=== PATIENT | female | born 1960 | race Caucasian/White ===

== ENCOUNTER 2016-12-17 13:04 | Emergency (ER) | payer OTHER ==
[~2016-12-17] VITALS: Ht 167.6 cm; Wt 50.0 kg
[2016-12-17 13:04] VITALS: BP 125/74; PULSE 55; RESP 17; O2SAT 100
[2016-12-17 13:42] LABS: BASOPHILS % (AUTO) 0.6 % (0-3); EOSINOPHILS % (AUTO) 2.9 % (0-5); MONOCYTES % (AUTO) 5.6 % (4-12); Mean Corpuscular Volume 91.1 fL (81-100); NEUTROPHILS % (AUTO) 70.3 % (40-74); Platelet Count 273 bil/L (150-400)
[2016-12-17 13:54] LABS: TROPONIN T < 0.010 ug/L (0.0-0.011)
--- NOTE | 2016-12-17 14:00 | DRSVH ---
PROCEDURE: X-RAY CHEST ONE VIEW, PORTABLE ([id number]) INDICATIONS: chest pain TECHNIQUE: One view of the chest was acquired. COMPARISON: None. FINDINGS: Surgical changes and devices: None. Lungs and pleura: No pleural effusions or pneumothorax. Lungs are clear. Bilateral nipple shadows are noted. Mediastinum: Mediastinal contours appear normal. Heart size is normal. Bones and chest wall: No suspicious bony lesions. Overlying soft tissues appear unremarkable. IMPRESSION: No acute cardiopulmonary findings. Dictated by: Reshma Dong M.D. on 12/17/2016 at 13:58 Approved by: Reshma Dong M.D. on 12/17/2016 at 13:58
[2016-12-17 14:08] LABS: Magnesium 2.1 mg/dL (1.6-2.6)
--- NOTE | 2016-12-17 14:22 | ED.REPORT ---
HPI-Chest Pain 40 and Over Date of Service Dec 17, 2016 ED Provider: Rishi Salvador MD Pt is a 56 year old female with a hx of neck problems presenting to the ED via EMS complaining of gradual dizziness and tingling in bilateral arms onset this morning over the course of an hour. Associated symptoms include neck pain, chest "twinges" lasting 2 seconds x4 episodes today, nausea, vomiting clear liquid/yellowish bile x4 today, and loose stools onset around 1000 today. Denies swelling in the legs. Pt reports that she's been tired and run down lately, and hasn't been "doing her walks or eating her greens" since before it got really cold out. She reports that she has had similar symptoms in the past and had negative cardiac workups. She reports that last time she had these symptoms, it was at the end of last winter, which she believes could be related to her borderline anemia. The dizziness i exacerbated by movement, making ambulation difficult. She describes the dizziness as ceiling moving, and reports that the nausea was caused by the dizziness. Pt is currently pain free, but the dizziness and nausea are still mildly present. Nursing Notes Stated Complaint: NAUSEA/VOMITING Chief Complaint: Chest Pain Nursing Notes Reviewed: Yes ([employer], [email or web address] not reconciled) Allergies: Coded Allergies: Penicillins (Verified Allergy, Intermediate, 12/17/16) Sulfa (Sulfonamide Antibiotics) (Verified Allergy, Intermediate, 12/17/16) Scheduled PRN Meclizine (Bonine) 25 Mg Tab.chew 25 MG PO TID PRN PRN vertigo General Time Seen by MD: 14:06 Chief Complaint Other (Dizziness) Hx Obtained From: Patient Arrived By: Walk-in Sudden in Onset?: No Onset Occurred: 1 - 4 hours ago Symptom Duration: Since onset Severity: Current: No pain currently Severity: Maximum: No pain Recent Healthcare: No recent doctor visit, No recent hospitalization Similar Sx Previous: No Past Medical History Past Medical History denies Past Surgical History Reports: Hysterectomy Family History Father had a heart attack at 62, mother had mitral valve issues following rheumatic fever Smoking History Former Smoker Ambulatory Status Independent Review of Systems Cardiovascular: Reports: Chest pain GI: Reports: Diarrhea, Nausea, Vomiting Musculoskeletal: Reports: Neck pain, Denies: Extremity swelling Neurologic: Reports: Dizziness, Numbness, Spinning sensation Complete sys rev & neg: except as marked. Physical Exam Initial Vital Signs Vital Signs (First) Date Time Temp Pulse Resp B/P Pulse Ox O2 Delivery O2 Flow Rate FiO2 12/17/16 13:04 36.5 55 17 125/74 100 Room Air Initial VS: Reviewed, Vital signs normal ENT: Mucous membranes moist, Conjunctiva normal, No scleral icterus Extremities: Vascular intact, Neuro intact, No swelling, No tenderness Skin: Warm, Dry, No cyanosis Neurologic: Alert, Oriented, Nonfocal Psychiatric: Mood/affect normal, Behavior normal, Normal thought content General/Constitutional: Awake, Alert, No acute distress, Well appearing Respiratory / Chest: Breath sounds NL, Breath sounds = bilat, No respiratory distress, No rales, No rhonchi, No wheezing, No stridor, No chest tenderness Cardiovascular: Heart rate NL, Regular rhythm, Heart sounds NL, No murmurs, Peripheral circulation NL, Pulses = bilaterally, No gross BP differential Abdomen: Soft, Non-tender, McBurney's non-tender, No guarding, No rebound, BS normoactive, No distention, No hernia, No palpable mass Head / Eyes: Atraumatic, Normocephalic Trace bilateral nystagmus which may be baseline for her. Interpretation & Diagnostics Lab Results Interpretation Result Diagram: 12/17/16 1320 12/17/16 1320 Test 12/17/16 13:20 White Blood Count 10.8th/mm3 (3.8-10.1) Red Blood Count 4.60mil/mm3 (3.90-5.20) Hemoglobin 13.8g/dL (12.0-15.6) Hematocrit 41.9% (35.0-46.0) Mean Corpuscular Volume 91.1fL (81-100) Mean Corpuscular Hemoglobin 30.0pg (27.0-35.0) Mean Corpuscular Hemoglobin Concent 32.9% (32.0-37.0) Red Cell Distribution Width 12.5% (12.3-15.4) Platelet Count 273bil/L (150-400) Neutrophils (%) (Auto) 70.3% (40-74) Lymphocytes (%) (Auto) 20.4% (14-46) Monocytes (%) (Auto) 5.6% (4-12) Eosinophils (%) (Auto) 2.9% (0-5) Basophils (%) (Auto) 0.6% (0-3) Sodium Level 140mEq/L (134-144) Potassium Level 4.0mEq/L (3.5-5.2) Chloride Level 100mEq/L (97-108) Carbon Dioxide Level 26mmol/L (18-29) Blood Urea Nitrogen 13mg/dL (6-24) Creatinine 0.59mg/dL (0.57-1.00) Estimat Glomerular Filtration Rate 150mL/min (>59) Glucose Level 124mg/dL (60-99) Calcium Level 9.3mg/dL (8.5-10.1) Magnesium Level 2.1mg/dL (1.6-2.6) Total Bilirubin 0.5mg/dL (0.0-1.2) Aspartate Amino Transf (AST/SGOT) 21U/L (0-50) Alanine Aminotransferase (ALT/SGPT) 18U/L (0-32) Alkaline Phosphatase 68U/L (25-150) Troponin T < 0.010ug/L (0.0-0.011) Total Protein 7.3g/dL (6.4-8.4) Albumin 4.6g/dL (3.4-5.0) Lab Results Interpretation: CBC normal CMP normal Troponin negative ECG Interpretation ECG Interpretation: No acute ischemia or abnormalities. Time: 13:31 Interpreted by: ED physician Normal ECG Interpretation: Normal rate (55), Normal sinus rhythm X-Ray Chest Interpretation Chest Xray Interpretation: IMPRESSION: No acute cardiopulmonary findings. Dictated by: Reshma Dong M.D. on 12/17/2016 at 13:58 View: Portable, 1 view Interpretation / Wet Read by: Interpret - Radiologist Re-Eval/Medical Decision Med Decision/Clinical Course Is 56-year-old female brought with with listhed as a chief complaint of chest pain, however the complaint that I get is an episode of dizziness, with nausea and a sense of spinning. He had a couple seconds of a sharp pain in the chest, but is only a few seconds. She also had some brief tingling in the arms again for a few seconds, but it comes that to her neck-and the main issue was that she felt dizzy with spinning, nausea, felt that the world was moving on her, felt sweaty and had to lay down. When I question her, she admits to having episode of vertigo couple years ago and says that it is somewhat similar. She improved. This nausea medicine en route and is now feels much better. On exam she appears well. She has no focal deficits. She has trace nystagmus, which can be normal. Normal vitals. She reports that she was told the prehospital EKG demonstrated right bundle melissa block that is news to her-however I obtained a prehospital EKG, reviewed it, the computer raised the concern for possible early right bundle, but her EKG does not demonstrate a right bundle. Her EKG in the department is normal. Her blood work is normal. All in all, her symptoms are extremely atypical and unlikely to represent a cardiac etiology. Few seconds of discomfort, with more pronounced symptoms suggesting possibility of vertigo. I have explained the exact etiology symptoms unclear, before she describes as more vertiginous component then cardiac component. Her laboratories are reassuring. I recommended rest, a trial course of when necessary meclizine, but routine precautions reviewed. Patient is discharged in much improved condition. Source of Hx: Old records Time of Eval: 15:04 Patient Status: Condition improved Re-Evaluation/Progress Note: Discussed plan for discharge. Pt understands and agrees. Differential Diagnosis: Negative: Acute coronary syndrome, Acute myocardial infarct, Dysrhythmia, Esophageal rupture, Gun shot wound chest, Peptic ulcer disease, Pneumomediastinum, Pneumothorax, Pulmonary edema, Pulmonary embolism, Rib fracture, Stab wound chest Counseled Regarding: Diagnosis, Lab results, Need for follow-up, When/why to return to ED Discharge & Departure Primary Impression: Vertigo Disposition: Home Discharge Condition All VS Reviewed: Yes Condition: Improved Additional Instructions: 1. Your tests in the emergency department are normal. 2. Your EKG and blood work were normal. There were no markers of a heart attack, and her EKG was normal. You are not anemic. 3. I am suspicious that your dizziness and nausea that you describe is from vertigo. 4. This should improve with time. Take it easy. No driving until symptoms resolve. 5. Take meclizine 25 mg up to 3 times a day as needed to reduce symptoms. 6. Return if new, worsening, or uncontrolled symptoms occur Referrals: [facility] Scribe Attestation Portions of this note were transcribed by Park Colunga. I, Dr. Salvador personally performed the history, physical exam and medical decision-making; I reviewed and confirmed the accuracy of the information in the transcribed note. Signed by: Vale Knutson, 17/12/2016 and [id number]. copies to: [facility] Rishi Salvador MD Dec 17, 2016 14:22 P[place] Dec 17, 2016 14:40
[2016-12-17] MEDS ORDERED: MECL-114 PO (14:58)
[2016-12-17 15:26] VITALS: BP 108/73; PULSE 57; RESP 15; O2SAT 99
== END 2016-12-17 15:25 | disposition home or self-care (01) ==
LOC: SED 13:04
DX: R42 Dizziness and giddiness (principal); M54.2 Cervicalgia; R20.2 Paresthesia of skin; R11.2 Nausea with vomiting, unspecified; R19.7 Diarrhea, unspecified; R07.9 Chest pain, unspecified; Z87.891 Personal history of nicotine dependence; Z88.0 Allergy status to penicillin; Z88.2 Allergy status to sulfonamides

== ENCOUNTER 2017-06-14 14:14 | Observation (INO) | payer OTHER ==
[~2017-06-14] VITALS: Ht 167.6 cm; Wt 48.9 kg
[2017-06-14 14:14] VITALS: BP 117/67; PULSE 62; RESP 15; O2SAT 100
[~2017-06-14 14:14] MED LIST: MECL-114 PO
[2017-06-14 14:24] LABS: BASOPHILS % (AUTO) 0.9 % (0-3); EOSINOPHILS % (AUTO) 3.9 % (0-5); MONOCYTES % (AUTO) 7.9 % (4-12); Mean Corpuscular Hemoglobin 30.2 pg (27.0-35.0); Mean Corpuscular Volume 87.9 fL (81-100); NEUTROPHILS % (AUTO) 55.9 % (40-74); Platelet Count 288 bil/L (150-400)
[2017-06-14] MEDS ORDERED: PROP1VIA ORAL (14:37)
[2017-06-14 14:58] LABS: TROPONIN T < 0.010 ug/L (0.0-0.011)
[2017-06-14 14:59] LABS: Magnesium 2.1 mg/dL (1.6-2.6)
--- NOTE | 2017-06-14 15:19 | DRSVH ---
PROCEDURE: X-RAY CHEST ONE VIEW, PORTABLE ([id number]) INDICATIONS: Chest pain. TECHNIQUE: One view of the chest was acquired. COMPARISON: [facility], CR, CHEST 1VW (PORTABLE), 04/28/2013, 17:25. [facility], CR, CHEST 1VW (PORTABLE), 09/11/2010, 4:37. [facility], CR, XR CHEST 1VW (PORTABL E), 12/17/2016, 13:20. FINDINGS: Surgical changes and devices: None. Lungs and pleura: Hyperinflation suggesting COPD. No pleural effusions or pneumothorax. Lungs are c lear. Mediastinum: Mediastinal contours appear normal. Heart size is normal. Bones and chest wall: No suspicious bony lesions. Overlying soft tissues appear unremarkable. IMPRESSION: No acute cardiopulmonary disease. ? COPD. Dictated by: Alan Carrasquillo M.D. on 06/14/2017 at 15:15 Approved by: Alan Carrasquillo M.D. on 06/14/2017 at 15:17
--- NOTE | 2017-06-14 15:23 | ED.REPORT ---
HPI-General Illness Date of Service Jun 14, 2017 ED Provider: Med Ambrose MD The patient is a 57 year old female w/ a hx of anxiety who presents to the ED via EMS complaining of intermittent, 6/10, mid-chest pain and pressure for the past week and a half. Sometimes the pain radiates down her left arm and into her neck. The pain increase with exertion and reduces with rest. Nitroglycerin helps relieve her symptoms. She had an episode of chest pain while she was gardening that last for several minutes and accompanied by shortness of breath. She denies nausea, vomiting, diarrhea, urinary symptoms, dysuria, back pain, bloody/tarry stool, back pain, incontinence, urinary urgency, urinary frequency , hematuria. The pt sees Dr. Clements in [place]. Nursing Notes Stated Complaint: CHEST PAIN Chief Complaint: Chest Pain Nursing Notes Reviewed: Yes Allergies: Coded Allergies: Penicillins (Verified Allergy, Intermediate, 06/14/17) Sulfa (Sulfonamide Antibiotics) (Verified Allergy, Intermediate, 06/14/17) Scheduled PRN Propranolol (Propranolol) 1 Mg/1 Ml Vial 10 MG ORAL DIRECTED PRN PRN TREMORS General Time Seen by MD: 15:00 Chief Complaint Chest pain Hx Obtained From: Patient Arrived By: Ambulance Sudden in Onset?: Yes Onset Occurred: 1 week ago Symptom Duration: Since onset Location: : Chest Quality: Painful, Pressure Radiation: : Arm left Severity: Maximum: Pain level 6 out of 10 Pertinent Negative: Pt denies other symptoms Recent Healthcare: Recent doctor visit Similar Sx Previous: Yes Past Medical History Past Medical History anxiety Past Surgical History Reports: Hysterectomy Family History Father had a heart attack at 62, mother had mitral valve issues following rheumatic fever Smoking History Former Smoker Ambulatory Status Independent Review of Systems Full Review of Systems Respiratory: Reports: Shortness of breath Cardiovascular: Reports: Chest pain GI: Denies: Bloody/tarry stool, Diarrhea, Nausea, Vomiting Female: Denies: Dysuria, Hematuria, Incontinence, Urinary frequency, Urinary urgency Musculoskeletal: Denies: Back pain Complete sys rev & neg: except as marked. Physical Exam Nursing note and vitals reviewed. Constitutional: Well-developed, well-nourished. Not diaphoretic. Head: Normocephalic and atraumatic. Mouth/Throat: Oropharynx is clear and moist. No oropharyngeal exudate. Eyes: EOM are normal. Pupils are equal, round, and reactive to light. Neck: Supple, no tracheal deviation. Cardiovascular: Normal rate, regular rhythm. Equal and intact distal pulses throughout. Pulmonary/Chest: Effort normal and breath sounds normal. No respiratory distress. Abdominal: Soft. No distension. There is no tenderness, rebound, or guarding. Bowel sounds present Musculoskeletal: Range of motion grossly intact, moving all extremities. No edema or tenderness appreciated. Neurological: AOx3. Grossly nonfocal exam. Strength and sensation intact and equal to bilateral upper and lower extremities. Skin: Warm and dry, no rashes or pallor appreciated. Psychiatric: Appropriate mood and affect. Behavior appears normal. Vital Signs Vital Signs Date Time Temp Pulse Resp B/P Pulse Ox O2 Delivery O2 Flow Rate FiO2 06/14/17 18:26 59 16 128/70 99 Room Air 06/14/17 16:02 65 18 124/76 99 Room Air 06/14/17 14:14 37.0 62 15 117/67 100 Room Air Initial VS: Reviewed Interpretation & Diagnostics Lab Results Interpretation Result Diagram: 06/14/17 1421 06/14/17 1421 Test 06/14/17 14:21 White Blood Count 7.5th/mm3 (3.8-10.1) Red Blood Count 4.31mil/mm3 (3.90-5.20) Hemoglobin 13.0g/dL (12.0-15.6) Hematocrit 37.9% (35.0-46.0) Mean Corpuscular Volume 87.9fL (81-100) Mean Corpuscular Hemoglobin 30.2pg (27.0-35.0) Mean Corpuscular Hemoglobin Concent 34.3% (32.0-37.0) Red Cell Distribution Width 12.7% (12.3-15.4) Platelet Count 288bil/L (150-400) Neutrophils (%) (Auto) 55.9% (40-74) Lymphocytes (%) (Auto) 31.3% (14-46) Monocytes (%) (Auto) 7.9% (4-12) Eosinophils (%) (Auto) 3.9% (0-5) Basophils (%) (Auto) 0.9% (0-3) Sodium Level 139mEq/L (134-144) Potassium Level 3.9mEq/L (3.5-5.2) Chloride Level 101mEq/L (97-108) Carbon Dioxide Level 21mmol/L (18-29) Blood Urea Nitrogen 15mg/dL (6-24) Creatinine 0.54mg/dL (0.57-1.00) Estimat Glomerular Filtration Rate 166mL/min (>59) Glucose Level 124mg/dL (60-99) Calcium Level 9.6mg/dL (8.5-10.1) Magnesium Level 2.1mg/dL (1.6-2.6) Total Bilirubin 0.3mg/dL (0.0-1.2) Aspartate Amino Transf (AST/SGOT) 16U/L (0-50) Alanine Aminotransferase (ALT/SGPT) 12U/L (0-32) Alkaline Phosphatase 79U/L (25-150) Total Protein 7.0g/dL (6.4-8.4) Albumin 4.2g/dL (3.4-5.0) Thyroid Stimulating Hormone (TSH) 1.450uIU/mL (0.450-4.500) ECG Interpretation Interpreted by: ED physician Normal ECG Interpretation: Normal sinus rhythm X-Ray Chest Interpretation Chest Xray Interpretation: IMPRESSION: No acute cardiopulmonary disease. ? COPD. Dictated by: Alan Carrasquillo M.D. on 06/14/2017 at 15:15 Approved by: Alan Carrasquillo M.D. on 06/14/2017 at 15:17 View: Portable Interpretation / Wet Read by: Interpret - Radiologist Re-Eval/Medical Decision Med Decision/Clinical Course In summary, in summary, 57-year-old female presenting to the ED for evaluation chest pain. Differential includes ACS, PE, PTX, aortic dissection, myocarditis/ pericarditis, abdominal etiology such as cholecystitis, MSK pain. Pain has been intermittent since onset; troponin negative. HEART score of 4. EKG demonstrates sinus rhythm without acute ischemic changes. Low risk by well's criteria; highly doubt PE. No evidence of pneumothorax on chest x-ray or exam. Pain not described as tearing through to the back, CXR w/ no evidence of widened mediastinum, normal neuro exam, and equal pulses to bilateral upper and lower extremities; aortic dissection seems very unlikely. Neither clinical presentation, exam, or EKG seem c/w pericarditis or myocarditis. No abdominal pain or tenderness. Rest of labs reviewed, unremarkable. CXR w/ no focal consolidations appreciated. Patient would likely benefit from a stress test for risk stratification - given her high risk, plan admission for further management and evaluation. Patient agreeable to plan, no further questions. Time of Eval: 17:40 Re-Evaluation/Progress Note: Plan for admission and stress test. Pt understands and agrees with plan. All questions addressed. Consultation #1: Call Returned at: 18:07 Community Development Manager: Agrees with eval, Agrees with plan Note: Case discussed with Dr. Zia Clements Cardiology office in [place]. Consultation #2: Referral / Consult Name: Raad Monk MD Consulted With: Hospitalist Call Returned at: 18:26 Community Development Manager: Agrees with eval, Agrees with plan, Accepts admit Note: Case discussed. Dr. Monk accepts admit. Counseled Regarding: Diagnosis, Lab results, Need for admission Discharge & Departure Primary Impression: Unstable angina Disposition: ADMITTED TO HOSPITAL Discharge Condition All VS Reviewed: Yes Condition: Stable Referrals: NOPCP (PCP) Zia Clements MD Attestation Portion of this note were transcribed by Kerry Sargent. I, Dr. Ambrose, personally performed the history, physical exam, and medical decision-making: I reviewed and confirmed the accuracy for the information in the transcribed note. Signed by: joselito Philip, 06/14/17 2100 copies to: Zia Clements MD, William B MD Jun 14, 2017 15:23 Kerry Sargent Jun 14, 2017 15:26 Kerry Sargent Jun 14, 2017 15:26
[2017-06-14 16:02] VITALS: BP 124/76; PULSE 65; RESP 18; O2SAT 99
[2017-06-14 18:26] VITALS: BP 128/70; PULSE 59; RESP 16; O2SAT 99
[2017-06-14] MEDS ORDERED: Senna-Docusate 8.6-50 mg Tablet PO PRN (18:45)
[2017-06-14] MEDS ORDERED: Alum-Mag Hydrox-Simeth 30 mL Suspension PO PRN (18:45)
[2017-06-14] MEDS ORDERED: 0.9% Sodium Chloride 1,000 ML IV SCH (18:45)
[2017-06-14] MEDS ORDERED: Ondansetron 2 mg/mL 2 mL Inj IVPUSH PRN (18:45)
[2017-06-14] MEDS ORDERED: Polyethylene Glycol (PEG) 17 Gm Powder PO PRN (18:45)
[2017-06-14 19:14] LABS: Creatine Kinase 83 U/L (21-215)
[2017-06-14 20:20] VITALS: BP 133/58; PULSE 63; RESP 18; O2SAT 98
--- NOTE | 2017-06-14 20:25 | PCM.HPMED ---
Subjective Date of Service Jun 14, 2017 Primary Provider: Admitting Physician: Rodolfo Richards MD Primary Care Physician: Rajendra España MD Attending Physician: Rodolfo Richards MD Chief Complaint: Chest pain History of Present Illness: Flori Fuller is a 57-year-old woman with past medical history of anxiety who presents to the [facility] emergency department today via EMS due to complaints of intermittent, 6 out of 10, mid chest pain and pressure for the past week. The patient states that the pain intermittently radiates down her left arm and into her neck. Pain is worsened with exertion and is mitigated by rest. This is a new feature of the pain for her. The patient has had chest pain before in the past and has had it worked up with cardiac stress test which were negative. The main difference between prior episodes and this one is usually exertion and exercise actually relieved the pain but this time it is exacerbated. Patient was prescribed nitroglycerin at her request by her wood fuel pelletizer and has never needed take it before. She has however, taken at the last couple of days and noticed a relief in her symptoms after taking after glycerin.. She had one prior similar episode of chest pain while she was gardening which lasted for 7 several minutes but resolved upon rest. She denies any nausea, vomiting, urinary symptoms, back pain, fever, chills, palpitations, diaphoresis, lower extremity edema, nocturnal paroxysmal dyspnea, orthopnea. The ED physician has kindly contacted Dr. Clements in [place] who is the patient's wood fuel pelletizer. In the emergency department her vital signs were stable. Review of Systems: A comprehensive review of systems was conducted with the patient and found to be negative except as above in the History of Present Illness. Allergies Coded Allergies: Penicillins (Verified Allergy, Intermediate, 06/14/17) Sulfa (Sulfonamide Antibiotics) (Verified Allergy, Intermediate, 06/14/17) Home Medications Flori Fuller [phone] 1960 02/07/2017 11:05 AM 11/29 Medication Name Directions Inderal XL take 1 capsule by oral route every day at bedtime PMH Anxiety Surgical History Hysterectomy Family History Father had a heart attack at 62, mother had mitral valve issues following rheumatic fever Social History Hx Alcohol Use: Yes (RARE) Hx Substance Use: No Smoking Status: Former Smoker Exam Vital Signs Vital Sign - Last Date Time Temp Pulse Resp B/P Pulse Ox O2 Delivery O2 Flow Rate FiO2 06/14/17 18:26 59 16 128/70 99 Room Air 06/14/17 14:14 37.0 Exam General: No acute distress, thin, well-developed, well-nourished, appropriately interactive HEENT: Normocephalic, atraumatic. External ears without defect. Pupils equal, round, and reactive to light and accommodation. Anicteric sclerae, moist conjunctivae, and no lid lag. Oropharynx free of erythema and cobble stoning with moist mucosa. Neck: Supple with full range of motion. No jugular venous distension. No bruits. No lymphadenopathy or thyromegaly. Cardiovascular: Regular rate and rhythm with no murmurs, rubs, or gallops appreciated. Palpable thrill. Pulmonary: Clear to auscultation bilaterally with no crackles, wheezes, or rhonchi. Normal respiratory effort with no use of accessory muscles. Abdomen: Bowel tones present. Soft, nontender, nondistended. No hepatosplenomegaly or masses appreciated. Extremities: No clubbing, cyanosis, edema, or lymphadenopathy appreciated. Skin: Normal temperature, turgor, and texture; no rash, ulcers, or subcutaneous nodules appreciated. Neurological: Cranial nerves grossly intact. Normal muscle strength, tone, and bulk. Reflexes, coordination, and sensory function within normal limits. No known gait impairment. Psychiatric: Appears anxious but is pleasant and cooperative.. Alert and oriented to person, place, and time. Lab and Diagnostics Result Diagram: 06/14/17 1421 06/14/17 1421 X-Rays, CTs and MRIs X-RAY CHEST ONE VIEW, PORTABLE IMPRESSION: No acute cardiopulmonary disease. Dictated by: Alan Carrasquillo M.D. on 06/14/2017 at 15:15 12-lead ECG Normal sinus rhythm, normal axis, no ST changes Assessment & Plan Flori Fuller is a 57-year-old woman with past medical history of anxiety who presents to the [facility] emergency department today via EMS due to complaints of intermittent, 6 out of 10, mid chest pain and pressure for the past week. Unstable angina, present on admission, active -Patient meets criteria for typical angina with Laura Inés criteria with an intermediate pre-test probability for positive stress test -Troponin negative, EKG unremarkable. -Aspirin 81 mg -Fasting lipid panel tomorrow, A1c -Telemetry monitoring -Exercise stress test -Nothing by mouth after midnight -No indication for heparinization at this time. Anxiety -We will hold patient's propranolol given stress test tomorrow CODE STATUS: Full code Patient is admitted under observation status with expected length of stay less than 2 midnights due to severity of presenting symptoms, risk of adverse event, and complexity of treatment plan. VTE Prophylaxis: Sub-Q Heparin (Unfractionated) Resuscitation Status: CPR: Attempt Resuscitation Attending Statement The patient was seen and examined together with Dr. Collins on 06/14 and I agree with the history, exam and plan as outlined in the note above. Gloria Collins DO Jun 14, 2017 18:52 Rodolfo Richards MD Jun 14, 2017 23:55
[2017-06-14 21:00] VITALS: BP 118/66; PULSE 63; RESP 12; O2SAT 95
[2017-06-14] MEDS ORDERED: LORazepam 1 mg Tablet PO PRN (21:25)
--- NOTE | 2017-06-15 | NUR ---
Admit note/Chest pain Pt arrived to [facility] at 1999. Pt stating came in to ER due to chest pain. Placed pt on tele. During admit questions pt stating chest pain increasing to 3-4/10, described as chest pressure and pain. Placed pt on 2 L O2, VSS, stat EKG ordered, paged. Offered pt ativan and nitro but pt declined due to chest pain being resolved. Med rec completed. Pt up ind in room, steady on feet. Call light within reach, frequent rounding.
[2017-06-15] MEDS: Heparin 5,000 Unit/mL Inj SUBQ SCH ×2 (00:30→07:51)
[2017-06-15] MEDS: Sodium Chloride LOK Flush 10 mL Syringe IVFLUSH SCH ×2 (00:45→07:53)
[2017-06-15 00:48] VITALS: BP 109/73; PULSE 60; RESP 12; O2SAT 98
[2017-06-15 01:54] LABS: Creatine Kinase 74 U/L (21-215)
[2017-06-15 05:50] VITALS: PULSE 56
[2017-06-15 06:03] VITALS: BP 104/54; PULSE 57; RESP 15; O2SAT 97
[2017-06-15 06:46] LABS: BASOPHILS % (AUTO) 1.3 % (0-3); MONOCYTES % (AUTO) 8.8 % (4-12); Mean Corpuscular Hemoglobin 30.2 pg (27.0-35.0); Mean Corpuscular Volume 89.4 fL (81-100); NEUTROPHILS % (AUTO) 46.3 % (40-74); Platelet Count 245 bil/L (150-400)
[2017-06-15 11:42] VITALS: PULSE 87
[2017-06-15 12:38] VITALS: BP 109/65; PULSE 63; RESP 17; O2SAT 97
--- NOTE | 2017-06-15 14:31 | DRSVH ---
PROCEDURE: 1 DAY TREADMILL STRESS TEST Rest and exercise myocardial perfusion SPECT with gated imaging and ejection fraction RADIOPHARMACEUTICAL: 9.07 mCi Tc-99m tetrafosmin IV at rest and 24.1 mCi Tc-99m tetrafosmin IV at pe ak exercise. Djj-eoo-pueguwpn was performed. INDICATIONS: UNSTABLE ANGINA TECHNIQUE: Radiopharmaceutical was injected at peak stress test, and also at rest. SPECT images wer e obtained. SPECT myocardial perfusion images were displayed in short axis, horizontal long axis, an d vertical long axis views. Gated images were reviewed using KialaQUANT software. COMPARISON: None. CARDIAC STRESS: A standard Donnie treadmill exercise tolerance test was performed by the patient under the supervision of an attending staff. The patient exercised for 9 minutes and 1 seconds; functional aerobic impair ment (WANDY) is -25 %. Hemodynamic data: There is normal blood pressure and heart rate response to exercise stress. Patien t achieved 94% of maximum predicted heart rate at peak exercise. Symptoms: Patient denied chest pain during exercise. EKG: No diagnostic EKG changes of ischemia; no ectopy. FINDINGS: Raw data: There is good myocardial labeling by radiotracer. No significant motion artifacts. Left ventricle function: Gated images demonstrate normal left ventricle wall thickening. No segment al wall motion abnormality. The left ventricle resting end-diastolic volume is 61 mL. Left ventricl e stress ejection fraction is >70% ; normal values are above 45%. Myocardial perfusion: There is a small area of mildly decreased uptake affecting the inferoapical se gment that appears fixed on the rest and stress images. This normalizes on the prone images making t his finding more likely related to artifact. No other imaging defects appreciated. IMPRESSION: 1. Appropriate hemodynamic response to exercise. 2. No chest pain or significant ECG changes with stress. 3. No scintigraphic evidence for significant areas of myocardial ischemia at the level of stress achi eved. 4. Normal left ventricular systolic function. Dictated by: Destiny Chirinos M.D. on 06/15/2017 at 14:24 Approved by: Destiny Chirinos M.D. on 06/15/2017 at 14:29
--- NOTE | 2017-06-15 16:05 | DRSVH ---
[facility] [address] [place] [address] Echocardiogram Report Name: RAMIREZ DHILLON Study Date: 06/15/2017 Height: 66 in Hospital Exam Location: [facility] Weight: 108 lb Gender: Female BSA: 1.5 m2 : 1960 Age: 57 yrs BP: 104/54 mmHg Reason For Study: Chest pain Ordering Physician: [facility]PITAL[facility] Performed By: Varsha Smith Referring Physician: [facility] Interpretation Summary The left ventricle is normal in size. The ejection fraction is estimated to be 60-65%. The right ventricle is normal in size and function. There is mild mitral regurgitation. There is mild to moderate aortic regurgitation. There is mild tricuspid regurgitation. The right ventricular systolic pressure is estimated at 23 mmHg assuming a right atrial pressure of 3 mm Hg. Procedure: A two-dimensional transthoracic echocardiogram with color flow and Doppler was performed. The study quality was technically adequate. There is no prior echocardiogram noted for this patient. The patient was in normal sinus rhythm during the exam. Left Ventricle: The left ventricle is normal in size. There is normal left ventricular wall thickness. There is no thrombus. The ejection fraction is estimated to be 60-65%. There are no focal wall motion abnormalities. Spectral Doppler of the mitral valve shows a normal E/A wave ratio. The E/E'is normal. Right Ventricle: The right ventricle is normal in size and function. Atria: Both atria are normal in size. The interatrial septum is intact with no evidence for an atrial septal defect. Mitral Valve: The mitral valve leaflets appear to open well. The mitral valve leaflets appear thickened, but open well. The mitral valve leaflets are mildly calcified. There is mild mitral annular calcification. There is systolic anterior motion of the chordal apparatus. Redundant elongated chordae are noted. There is mild mitral regurgitation. Aortic Valve: The aortic valve opens well. The aortic valve is trileaflet. There is no aortic valve stenosis. There is mild to moderate aortic regurgitation. Tricuspid Valve: The tricuspid valve leaflets are thickened and/or calcified, but open well. There is mild tricuspid regurgitation. The right ventricular systolic pressure is estimated at 23 mmHg assuming a right atrial pressure of 3 mm Hg. Pulmonic Valve: The pulmonic valve is not well seen, but is grossly normal. There is no pulmonic valvular regurgitation. Great Vessels: The aortic root is normal size. The aortic arch is normal in size. The ascending aorta is normal in size. The pulmonary artery is not well visualized, but is probably normal size. The IVC is of normal diameter and collapses greater than 50% with a sniff. This suggests a low right atrial pressure of 3 mm Hg. Pericardium/ Pleura There is no pericardial effusion. There is an anterior echo-free space consistent with a fat pad. There is no pleural effusion. MMode/2D Measurements & Calculations LVIDd: 4.2 cm RA long axis LVOT diam: 2.1 cm LVIDs: 2.3 cm LA A2 area: 13.4 cm Ao root diam FS: 44.6 % LA A4 area: 15.0 cm RA area EPSS: 0.02 cm LA length (vol) asc Aorta Diam IVSd: 0.69 cm : 12.6 cm LVPWd: 0.76 cm LA vol: 39.7 ml RA vol Ao Arch Diam (Prox LA vol index : 30.5 ml Trans): 2.7 cm RA : 19.8 mm2 IVC diam: 0.89 cm LV johnson. diameter/BSA LV sys. diameter/BSA RVD1 (basal) RVD2 (mid): 2.5 cm (cm/m^2): 2.8 (cm/m^2): 1.5 Doppler Measurements & Calculations Ao V2 max MV E max rc MV E/A: 2.5 TR max rc : 141.0 cm/sec : 74.6 cm/sec Med Peak E' Rc : 235.2 cm/sec Ao max PG MV A max rc TR max PG : 8.0 mmHg : 30.4 cm/sec E/E' med: 6.6 : 20.0 mmHg Ao mean PG MV P1/2t: 47.8 msec Lat Peak E' Rc PA V2 max : 78.1 cm/sec LVOT Max Rc E/E' lat: 5.5 PA mean PG : 247.1 cm/sec E/e' average: 6.1 PA Accel Time GIULIANA(I,D): 5.7 cm : 0.14 sec sev ratio: 1.6 MV dec time MV P1/2t max rc Ao V2 mean LV V1 max PG : 0.16 sec : 103.7 cm/sec MVA(P1/2t): 4.6 cm2 Ao V2 VTI: 32.3 cm LV V1 VTI GIULIANA(V,D): 6.3 cm2 : 51.3 cm PA V2 mean GIULIANA indexed to BSA : 59.2 cm/sec (cm^2/m^2): 3.7 Reading Physician:JOSE
--- NOTE | 2017-06-15 16:20 | PCM.DC.MED ---
Discharge Summary Date of Service Jun 15, 2017 Dates of Hospitalization Date of Hospital Admission Jun 14, 2017 at 18:43 Date of Discharge: Jun 15, 2017 Providers: Admitting Physician: Rodolfo Richards MD Primary Care Physician: Rajendra España MD Attending Physician: Joseph Marinelli DO Diagnosis at Time of Discharge Diagnosis at Time of Discharge Chest pain without evidence of acute coronary syndrome or ischemia. Likely noncardiac in nature Procedures XRay, CTs & MRIs X-RAY CHEST ONE VIEW, PORTABLE IMPRESSION: No acute cardiopulmonary disease. Dictated by: Alan Carrasquillo M.D. on 06/14/2017 at 15:15 ECG 12 Lead Normal sinus rhythm, normal axis, no ST changes Cardiac Echo Impression Interpretation Summary The left ventricle is normal in size. The ejection fraction is estimated to be 60-65%. The right ventricle is normal in size and function. There is mild mitral regurgitation. There is mild to moderate aortic regurgitation. There is mild tricuspid regurgitation. The right ventricular systolic pressure is estimated at 23 mmHg assuming a right atrial pressure of 3 mm Hg. Other Diagnostics PROCEDURE: 1 DAY TREADMILL STRESS TEST Rest and exercise myocardial perfusion SPECT with gated imaging and ejection fraction RADIOPHARMACEUTICAL: 9.07 mCi Tc-99m tetrafosmin IV at rest and 24.1 mCi Tc- 99m tetrafosmin IV at peak exercise. Dna-gve-tytytrma was performed. INDICATIONS: UNSTABLE ANGINA TECHNIQUE: Radiopharmaceutical was injected at peak stress test, and also at rest. SPECT images were obtained. SPECT myocardial perfusion images were displayed in short axis, horizontal long axis, and vertical long axis views. Gated images were reviewed using AutoQUANT software. COMPARISON: None. CARDIAC STRESS: A standard Donnie treadmill exercise tolerance test was performed by the patient under the supervision of an attending staff. The patient exercised for 9 minutes and 1 seconds; functional aerobic impairment (WANDY) is -25 %. Hemodynamic data: There is normal blood pressure and heart rate response to exercise stress. Patient achieved 94% of maximum predicted heart rate at peak exercise. Symptoms: Patient denied chest pain during exercise. EKG: No diagnostic EKG changes of ischemia; no ectopy. FINDINGS: Raw data: There is good myocardial labeling by radiotracer. No significant motion artifacts. Left ventricle function: Gated images demonstrate normal left ventricle wall thickening. No segmental wall motion abnormality. The left ventricle resting end-diastolic volume is 61 mL. Left ventricle stress ejection fraction is >70% ; normal values are above 45%. Myocardial perfusion: There is a small area of mildly decreased uptake affecting the inferoapical segment that appears fixed on the rest and stress images. This normalizes on the prone images making this finding more likely related to artifact. No other imaging defects appreciated. IMPRESSION: 1. Appropriate hemodynamic response to exercise. 2. No chest pain or significant ECG changes with stress. 3. No scintigraphic evidence for significant areas of myocardial ischemia at the level of stress achieved. 4. Normal left ventricular systolic function. Dictated by: Destiny Chirions M.D. on 06/15/2017 at 14:24 Brief History As for admission history of present illness by Dr. Alvarado, " Flori Fuller is a 57-year-old woman with past medical history of anxiety who presents to the [facility] emergency department today via EMS due to complaints of intermittent, 6 out of 10, mid chest pain and pressure for the past week. The patient states that the pain intermittently radiates down her left arm and into her neck. Pain is worsened with exertion and is mitigated by rest. This is a new feature of the pain for her. The patient has had chest pain before in the past and has had it worked up with cardiac stress test which were negative. The main difference between prior episodes and this one is usually exertion and exercise actually relieved the pain but this time it is exacerbated. Patient was prescribed nitroglycerin at her request by her horse farm manager and has never needed take it before. She has however, taken at the last couple of days and noticed a relief in her symptoms after taking after glycerin.. She had one prior similar episode of chest pain while she was gardening which lasted for 7 several minutes but resolved upon rest. She denies any nausea, vomiting, urinary symptoms, back pain, fever, chills, palpitations, diaphoresis, lower extremity edema, nocturnal paroxysmal dyspnea, orthopnea. The ED physician has kindly contacted Dr. Clements in [place] who is the patient's horse farm manager. In the emergency department her vital signs were stable." Hospital Course Unstable angina, present on admission, active -Patient meets criteria for typical angina with Laura Inés criteria with an intermediate pre-test probability for positive stress test -Troponin negative, EKG unremarkable. -Aspirin 81 mg -Fasting lipid panel tomorrow, A1c -Telemetry monitoring -Exercise stress test conducted with no abnormal findings -Echocardiogram gram demonstrates normal ejection fraction with no wall motion abnormalities, normal pressure gradients -Given low-risk patient heparinization was not considered . Anxiety -Propranolol restarted on discharge - Further management to be considerable primary care physician Patient discharged home in stable condition, and follow-up with horse farm manager next few weeks to discuss results and consider further management strategies Patient urged to follow primary care physician to discuss other comorbidities including anxiety spectrum disorder which may contribute to persistent chest pain. Exam Vital Signs (Last) Date Time Temp Pulse Resp B/P Pulse Ox O2 Delivery O2 Flow Rate FiO2 06/15/17 12:38 36.7 63 17 109/65 97 Room Air 06/14/17 21:00 2.00 Test 06/14/17 14:21 06/15/17 00:45 06/15/17 05:59 Hemoglobin A1c 6.0% (4.8-5.6) Magnesium Level 2.1mg/dL (1.6-2.6) Total Bilirubin 0.3mg/dL (0.0-1.2) Aspartate Amino Transf (AST/SGOT) 16U/L (0-50) Alanine Aminotransferase (ALT/SGPT) 12U/L (0-32) Alkaline Phosphatase 79U/L (25-150) Total Protein 7.0g/dL (6.4-8.4) Albumin 4.2g/dL (3.4-5.0) Thyroid Stimulating Hormone (TSH) 1.450uIU/mL (0.450-4.500) Total Creatine Kinase 74U/L (21-215) Creatine Kinase MB 1.1ng/mL (0.0-5.3) Creatine Kinase MB % % (0.0-5.0) Troponin T 0.010ug/L (0.0-0.011) White Blood Count 7.0th/mm3 (3.8-10.1) Red Blood Count 4.17mil/mm3 (3.90-5.20) Hemoglobin 12.6g/dL (12.0-15.6) Hematocrit 37.3% (35.0-46.0) Mean Corpuscular Volume 89.4fL (81-100) Mean Corpuscular Hemoglobin 30.2pg (27.0-35.0) Mean Corpuscular Hemoglobin Concent 33.8% (32.0-37.0) Red Cell Distribution Width 12.8% (12.3-15.4) Platelet Count 245bil/L (150-400) Neutrophils (%) (Auto) 46.3% (40-74) Lymphocytes (%) (Auto) 38.5% (14-46) Monocytes (%) (Auto) 8.8% (4-12) Eosinophils (%) (Auto) 5.0% (0-5) Basophils (%) (Auto) 1.3% (0-3) Sodium Level 141mEq/L (134-144) Potassium Level 4.0mEq/L (3.5-5.2) Chloride Level 106mEq/L (97-108) Carbon Dioxide Level 23mmol/L (18-29) Blood Urea Nitrogen 12mg/dL (6-24) Creatinine 0.54mg/dL (0.57-1.00) Estimat Glomerular Filtration Rate 166mL/min (>59) Glucose Level 88mg/dL (60-99) Calcium Level 9.0mg/dL (8.5-10.1) Triglycerides Level 51mg/dL (0-149) Cholesterol Level 160mg/dL (100-199) LDL Cholesterol, Calculated 80.800mg/dL (0-99) VLDL Cholesterol 10.200mg/dL HDL Cholesterol 69mg/dL (>39) Cholesterol/HDL Ratio 2.32 (0.0-4.4) General: Alert, Oriented X3, Cooperative, No Acute Distress, Other (mildly anxious) Mouth: Mucous Membr Moist/[place] Cardiovascular: Exam Unremarkable Neurological: Grossly Neurologically Intact Discharge Medications As needed Propranolol (Propranolol) 1 Mg/1 Ml Vial 10 MG ORAL DIRECTED PRN PRN TREMORS (Reported) Followup Plan Disposition: Home Follow-up plan Follow up with your primary care provider in 1-2 weeks to review hospitalization Contact cardiologists office and discharge to discuss results, follow up as indicated. Discharge Diet: No restrictions Discharge Activity: No restrictions Follow-up Provider: Rajendra España MD Follow-up with PCP in: 1 week Time spent 45 minutes copies to: Rajendra España MD; Zia Clements MD Vital Signs Vital Sign - Last Date Time Temp Pulse Resp B/P Pulse Ox O2 Delivery O2 Flow Rate FiO2 06/15/17 12:38 36.7 63 17 109/65 97 Room Air 06/14/17 21:00 2.00 Intake and Output 06/14/17 06/14/17 06/15/17 Cumulative From/Thru 15:00 23:00 07:00 06/14/17 14:14 - 06/15/17 06:03 Intake Total 360 ml 360 ml Balance 360 ml 360 ml Intake Oral 360 ml 360 ml # Voids 2 2 Lab and Diagnostics Result Diagram: 06/15/17 0559 06/15/17 0559 Joseph Marinelli DO Jun 15, 2017 16:20
--- NOTE | 2017-06-15 16:24 | PCM.DIMED ---
Discharge Instructions Date of Service Jun 15, 2017 Dates of Hospitalization Jun 14, 2017 at 18:43 Discharge Diagnosis Discharge Diagnosis Chest pain without evidence of acute coronary syndrome or ischemia. Likely noncardiac in nature Diet Discharge Diet: No restrictions Activity Discharge Activity: No restrictions Call your provider Call your provider for: Shortness of breath, Chest pain Patient Instructions Follow-up plan Follow up with your primary care provider in 1-2 weeks to review hospitalization Contact cardiologists office and discharge to discuss results, follow up as indicated. Follow-up Provider: Rajendra España MD Follow-up with PCP in: 2 weeks Joseph Marinelli DO Jun 15, 2017 16:24
--- NOTE | 2017-06-15 16:26 | NUR ---
Social Work: Discharge / Brief note / multidisciplinary rounds Data: Pt is a 57 y/o female admitted for unstable angina. Pt's PCP is Dr España, pt's insurance is [employer]. EMR reviewed. Pt discussed in rounds. MD states pt likely to d/c pending stress test results. D/C orders now in. No d/c planning needs at this time. KNITTING TESTER will continue to follow if needs arise. Assessment: Pt who is independent at baseline. Plan: Pt will d/c home today via POV. No d/c planning needs at this time. KNITTING TESTER will continue to follow if needs arise. RONEY Silverio
--- NOTE | 2017-06-15 17:28 | NUR ---
Discharge Went over discharge instructions with pt who verbally acknowledged understanding. Removed IV and tele. pt left with boyfriend to car. No s/s of distress at time of dc. Refused wheelchair.
== END 2017-06-15 18:20 | disposition home or self-care (01) ==
LOC: SED 14:14 → MPC 18:43
PROVIDERS: ADMIT Hospitalist; ATTEND Family Medicine
DX: I20.0 Unstable angina (principal); R07.9 Chest pain, unspecified; F41.9 Anxiety disorder, unspecified; Z87.891 Personal history of nicotine dependence; Z79.82 Long term (current) use of aspirin
CPT/HCPCS: 36415; 71010; 78452; 80048; 80053; 80061; 82550; 82553; 83036; 83735; 84443; 84484; 85025; 93005; 93017; 99285; A9502; C8929; G0378